=== PATIENT | male | born 1940 | race Caucasian/White ===

== ENCOUNTER 2022-06-22 18:33 | Emergency (ER) | payer MEDICARE, BC | END 2022-06-22 20:20 | disposition home or self-care (01) | LOC: ERS 18:33 | DX: T18.9XXA Foreign body of alimentary tract, part unspecified, initial encounter (principal); I10 Essential (primary) hypertension; E78.00 Pure hypercholesterolemia, unspecified; Z87.891 Personal history of nicotine dependence | CPT/HCPCS: 74022 ==